=== PATIENT | female | born 1945 | race Caucasian/White ===

== ENCOUNTER → 2020-03-28 | Outpatient (CLI) | payer MEDICARE, BC | LOC: M.RAD 13:47 | PROVIDERS: ATTEND Internal Medicine | DX: M25.512 Pain in left shoulder (principal) ==

== ENCOUNTER → 2020-04-05 | Outpatient (CLI) | payer MEDICARE, BC | LOC: M.MRI 13:56 | PROVIDERS: ATTEND Orthopaedic Surgery | DX: M75.102 Unspecified rotator cuff tear or rupture of left shoulder, not specified as traumatic (principal); M77.9 Enthesopathy, unspecified ==

== ENCOUNTER → 2020-04-26 | Outpatient (CLI) | payer MEDICARE, BC ==
[~2020-04-26] MED LIST: ESTROVEN 155 M155 MG PO; GABAPENTIN 100100 MG PO; GYNODIOL0.5 MG PO; LISINOPRIL5 MG PO; MELOXICAM15 MG PO; OMEPRAZOLE 20 M20 M1 PO; OXYCODONE-ACET1 EACH PO; SYNTHROID25 MC1 PO; TYLENOL EXTRA500 MG PO
== END ==
LOC: M.LAB 10:40
PROVIDERS: ATTEND Orthopaedic Surgery
DX: Z01.812 Encounter for preprocedural laboratory examination (principal); Z20.828 Contact with and (suspected) exposure to other viral communicable diseases; M19.012 Primary osteoarthritis, left shoulder

== ENCOUNTER 2020-05-02 09:57 | Day surgery (SDC) | payer MEDICARE, BC ==
--- NOTE | ~2020-05-02 | OP ---
[address] [address] OPERATIVE REPORT Name: TORI RUBY Room: [address] IN .R.#: [id number] Admission: 05/02/20 Attend Phys: Gilberto Goff II Discharge: Date of : 47 Report #: [id number] THIS REPORT FOR: //name// cc: Ranjan Hussein MD, Dean L. MD ~ CC: Ranjan Goff DATE OF SERVICE: 05/02/2020 PREOPERATIVE DIAGNOSIS: Left shoulder rotator cuff tear. POSTOPERATIVE DIAGNOSES: 1. Left shoulder rotator cuff tear. 2. Biceps tear. 3. Bone and cartilage debris and labral tears within the glenohumeral joint. 4. Subacromial impingement. PROCEDURES: 1. Left shoulder arthroscopic surgery with rotator cuff repair. 2. Biceps tenodesis. 3. Extensive debridement of labral tears in glenohumeral joint. 4. Subacromial decompression. SURGEON: Gilberto Goff II, DO PEDIATRIC PSYCHIATRIST: DULCE MARIA Shetty. ANESTHESIA: Per operative record. ESTIMATED BLOOD LOSS: Minimal. ANTIBIOTICS: Per operative record. DRAINS: None. COMPLICATIONS: None. CONDITION OF THE PATIENT: Stable to recovery room. DESCRIPTION OF PROCEDURE: The patient was taken to the operative suite and placed supine on the OR table, given appropriate anesthesia. The patient's affected shoulder was sterilely prepped and draped in modified beach chair position, AND all bony prominences well padded. Surgery began by posterior portal incision. The arthroscope was advanced in the joint. There was shown to be a tear greater than 60% of the biceps tendon from the anterior aspect of the [address] [address] OPERATIVE REPORT Name: TORI RUBY Room: [address] IN [facility].#: [id number] Admission: 05/02/20 Attend Phys: Gilberto Goff II Discharge: Date of : 47 Report #: [id number] glenoid anterior portal and cannula was then established. The biceps tendon was then secured utilizing a stitch. It was then snipped from its proximal attachment of the glenoid and anchored to the biceps groove utilizing an anchor to the anterior shoulder. This was probed and shown to be intact. There was extensive bone and cartilage debris in glenohumeral joint. This was debrided utilizing a shaver throughout the superior, inferior as well as anterior and posterior portions of the glenohumeral joint. Utilizing a shaver to remove all bone and cartilage debris as well as labral tears and extensive debridement performed. The arthroscope was then advanced in subacromial space and subacromial decompression with partial anterior acromioplasty was performed and then removed the distal centimeter of clavicle part. So the distal centimeter lateral clavicle was excised to remove that part. There was shown to be rotator cuff tear in its lateral margin of supraspinatus measuring approximately 1 cm. This was debrided utilizing a shaver to the free edge down to fresh tissue. A bone bed was then repaired along the lateral humerus down to bleeding bone. Two sutures were then placed through the rotator cuff. We then placed on X configuration and anchored to the lateral humerus with two anchors. This was probed and shown to be intact with excellent repair of the rotator cuff and full range of motion of the shoulder without evidence of re-tear. Final images were taken. The shoulder was drained of arthroscopic fluid, closed with 4-0 nylon in simple fashion. Dermabond and sterile dressing and sling were applied. The patient transported to recovery room in stable condition. Counts were correct throughout the procedure. By: [id number] Goff II, DO /nt
[2020-05-02 10:31] LABS: HEMATOCRIT 40.4 % (37.0-47.0); HEMOGLOBIN 13.9 gm/dL (12.0-15.0); MCH 32.3 pg (26.0-34.0); MCHC 34.5 g/dL (28.0-37.0); MCV 93.7 fL (80.0-100.0); RBC 4.31 mil/uL (4.20-5.00)
[2020-05-02 10:39] LABS: CALCIUM 9.6 mg/dL (8.5-10.1); CREATININE 0.9 mg/dL (0.6-1.3); POTASSIUM 3.7 mmol/L (3.5-5.1)
--- NOTE | 2020-05-02 13:42 | EKG ---
[place] [address] ELECTROCARDIOGRAM REPORT Name: TORI RUBY Room: [place] [address] ADM IN .R.#: [id number] Admission: 05/02/20 Attend Phys: Gilberto Goff, Discharge: Date of : 47 Date of Service: 05/02/20 1040 Report #: [id number] THIS REPORT FOR: //name// [facility] Test Date: 2020-05-02 Test Time: 10:40:12 Pat Name: TORI RUBY Department: Room: [place] [address] Gender: F Digital Sales Assistant: : 1945 Requested By: Gilberto Goff Order Number: [id number] Negrito MD: Hardeep Pinto Measurements Intervals [place] Rate: 67 P: 59 CO: 171 QRS: 58 QRSD: 83 T: 67 QT: 422 QTc: 446 Interpretive Statements Sinus rhythm Consider left ventricular hypertrophy No previous ECG available for comparison Electronically Signed On 05-02-2020 13:42:08 CDT by Hardeep Pinto [email or web address] <ELECTRONICALLY SIGNED> By: Hardeep Pinto MD, [facility] 05/02/20 1342 1040 1040 Hardeep Pinto MD, [facility] /EPI
[2020-05-02] MEDS ORDERED: PERCOCET 5-3251 EACH PO (14:52)
== END 2020-05-02 16:00 | disposition home or self-care (01) ==
LOC: M.PRE 09:57 → M.TBA 09:57 → M.SUR 09:57 → M.PRE 13:10 → M.SUR 16:00
PROVIDERS: ATTEND Orthopaedic Surgery
DX: M25.512 Pain in left shoulder (principal); S46.012A Strain of muscle(s) and tendon(s) of the rotator cuff of left shoulder, initial encounter; S46.212A Strain of muscle, fascia and tendon of other parts of biceps, left arm, initial encounter; S43.492A Other sprain of left shoulder joint, initial encounter; M25.812 Other specified joint disorders, left shoulder; I10 Essential (primary) hypertension; E03.9 Hypothyroidism, unspecified; Z98.890 Other specified postprocedural states; Z79.899 Other long term (current) drug therapy; Z98.51 Tubal ligation status; Z90.710 Acquired absence of both cervix and uterus; X58.XXXA Exposure to other specified factors, initial encounter; Y93.89 Activity, other specified; Y92.89 Other specified places as the place of occurrence of the external cause; Y99.8 Other external cause status

== ENCOUNTER → 2021-02-13 | Outpatient (CLI) | payer MEDICARE, BC ==
[~2021-02-13] MED LIST changes: +PERCOCET 5-3251 EACH PO
== END ==
LOC: M.RAD 16:08
PROVIDERS: ATTEND Internal Medicine
DX: J32.1 Chronic frontal sinusitis (principal); R06.02 Shortness of breath; R05 Cough; J02.9 Acute pharyngitis, unspecified